=== PATIENT | female | born 1950 | race Caucasian/White ===

== ENCOUNTER → 2016-12-05 | Outpatient (CLI) | payer BC | END | disposition home or self-care (01) | LOC: GMAB 10:02 | PROVIDERS: ATTEND Family Medicine | DX: Z00.01 Encounter for general adult medical examination with abnormal findings (principal) ==

== ENCOUNTER → 2018-07-26 | Outpatient (CLI) | payer MEDICARE ==
--- NOTE | 2018-07-26 13:26 | MRI ---
EXAM DESCRIPTION: Lumbar Spine w/o Contrast : Magnetic Resonance Imaging. CLINICAL HISTORY: SACRAL BACK PAIN COMPARISON: None available. TECHNIQUE: Multiplanar, multiple standard sequences, non contrast MRI, lumbar spine. FINDINGS: Marked compression of the central L2 vertebral body with slight gibbus formation, and retrolisthesis. Expansion of the L1-2 disc into the superior L2 endplate. Superior endplate retropulsion 6 mm abutting the cauda equina. AP canal diameter 7.5 mm. No marrow edema in the retropulsion segment. No marrow edema in the pedicles. Modic type II endplate reactive changes to the right of midline at L1-2 with disc spur complex encroaching on the right foramen which is stenotic. Moderate narrowing of the left foramen. L2-3: Disc desiccation with small Schmorl's node in the superior L3 endplate. Posterior broad-based bulge. Mild flavum ligament hypertrophy. Mild canal narrowing. Mild right foraminal narrowing with left foramen patent. Circumscribed hyperintense T1 and T2 signal in the anterior inferior L3 vertebral body consistent with a hemangioma. T12-L1: Normal signal in the disc and disc space preserved. No significant desiccation. Canal and foramina are patent. Posterior elements are unremarkable. Conus terminates at this level. L3-4: Minimal disc space loss. Schmorl's nodes in the endplates not acute. Posterior broad-based 5 mm disc bulge. Right facet joint hypertrophic arthrosis and bilateral hypertrophic flavum ligaments. AP canal diameter 9 mm. Disc bulge into the bilateral foramina more on the left with moderate narrowing. L4-5: Mild disc desiccation with disc space preserved. Minimal posterior broad-based disc bulge. Bilateral mild facet joint arthrosis and flavum ligament hypertrophy. AP canal diameter 12 mm. Moderate narrowing of the right foramen and near stenosis of the left foramen by disc and facet spur complex. L5-S1: Disc space preserved with disc desiccation. Grade 1 anterolisthesis 3 mm. Minimal posterior disc bulge. Right paracentral T2 hyperintensity indicating an annular fissure posterior disc. Left facet joint arthrosis and hypertrophy with flavum ligament hypertrophy. Effusion right facet joint. Modic type II endplate reactive changes on the left. Left foraminal stenosis and moderate to severe right foraminal narrowing. Left L5 pars intact with deformity on the right. Soft tissue edema posterior to the bilateral facet joints in the fat and in the paraspinal muscle. L1-L3 levoscoliosis and L3-S1 dextroscoliosis. Paravertebral soft tissues and the mass previously described. Paraspinal muscle atrophy. Partial visualization of a large lateral right cortical cyst kidney and a smaller medial cortical cyst on the left kidney.. Normal marrow signal in the remaining vertebral bodies and the posterior elements. Vertebral bodies are not compressed at any level. IMPRESSION: 1. Old chronic compression type vertebral body fracture L2 with no marrow edema in the vertebral body pedicles or lamina. Significant retropulsion of the superior endplate abutting the cauda equina at this level with mild to moderate canal stenosis. 2. Gibbus formation at L1-2 with retrolisthesis, moderate stenosis on the right, and right foraminal stenosis. Correlate for right L1 radiculopathy. Moderate left foraminal narrowing. 3. Posterior L3-4 disc bulge and hypertrophic and degenerative changes in the posterior elements resulting in mild central canal stenosis. 4. Disc and facet spur complex at L4-5 encroaching on the left foramen with near stenosis. Correlate for left L4 radiculopathy. 5. Grade 1 anterolisthesis L5-S1. Annular fissure in the right posterior disc margin. Left side moderate spondylosis and left foraminal stenosis. Correlate for left L5 radiculopathy. Deformity right L5 pars most likely spondylolysis. Severe right foraminal narrowing. Correlate for right L5 radiculopathy. Electronically signed by: Harshad Orozco MD 07/26/2018 1:24 PM [employer]
== END ==
LOC: MRI 11:24
PROVIDERS: ATTEND Nurse Practitioner Family
DX: M51.86 Other intervertebral disc disorders, lumbar region (principal); M84.48XA Pathological fracture, other site, initial encounter for fracture